=== PATIENT | male | born 1985 | race Caucasian/White ===

== ENCOUNTER 2024-10-03 08:30 | Emergency (ER) | payer OTHER, SELFPAY ==
--- NOTE | ~2024-10-03 | XR_ITS ---
Portable chest x-ray Comparison: None Clinical History: Chest pain Findings: Lungs are clear, without focal consolidation or pleural effusion. Cardiomediastinal silho uette is unremarkable. Bones and soft tissues are unremarkable. Impression: Normal chest. Reviewed, dictated and finalized at location . Impression: Normal chest.
--- OUTSIDE RECORDS SUMMARY | 2024-10-03 08:32 | XMS_ITS | Clinical Summary ---
Author Organization [facility] Address [address] [place] [address] Care Team Providers Care Flatbed Company Driver Name Role Phone Unavailable Primary Care Provider Unavailabl e Source Comments [facility],non-owned Affiliates and Associated Physician Practices is amultiple site organization consisting of ambulatory clinics and hospital sitesin [place], [place], [place] and [place]. This disclosure is being madepursuant to the Care Everywhere program and may not contain all information available regarding this patient. 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 Gender Identity Not on file Sexual Orientation Not on file Plan of Treatment Health Maintenance Due Date Last Done Comments HIV SCREENING 07/25/2002 HEPATITIS C SCREENING 07/21/2005 HEPATITIS B VACCINE (1 of 3 - 19+ 3-dose series) 07/25/2006 HPV VACCINE (1 - 3-dose SCDM series) 07/25/2014 COVID-19 VACCINE (2023-2 5 season) 2023 DEPRESSION SCREENING 02/18/2024 INFLUENZA VACCINE (#1) 2024 DTAP/TDAP/TD VACCINES (2 - T d or Tdap) 12/11/2028 12/11/2018 ZOSTER VACCINE (1 of 2) 07/25/2037 HIB VACCINE Aged Out No longer eligi ble based on patient's age to complete this topic MENINGOCOCCAL (Group B) VACC INE SHARED DECISION-MAKING Aged Out No longer eligibl e based on patient's age to complete this topic MENINGOCOCCAL GROUPS A/C/Y/W VACCINE Aged Out No longer eligible b ased on patient's age to complete this topic PNEUMOCOCCAL VACCINE Aged Out No long er eligible based on patient's age to complete this topic Insurance
[2024-10-03 08:38] VITALS: BP 136/94; PULSE 96; RESP 21; TEMP 36.7; O2SAT 98
--- NOTE | 2024-10-03 08:44 | ECG_ITS ---
Test Date: 2024-10-03 08:35:52 Measurements Intervals [place] Rate: 104 P: 61 MS: 150 QRS: 20 QRSD: 88 T: 58 QT: 319 QTc: 421 Interpretive Statements SINUS TACHYCARDIA POSSIBLE RIGHT VENTRICULAR CONDUCTION DELAY NONSPECIFIC ST ELEVATION IN ANT/INF LEADS BORDERLINE ECG No previous ECG available for comparison Electronically Signed On 10-03-2024 14:50:59 CDT by Johan Ugarte D.O.
[2024-10-03 08:56] VITALS: PULSE 97; O2SAT 99
[2024-10-03 08:59] LABS: Hematocrit 43.5 % (42.0-52.0); Hemoglobin 14.9 g/dL (14.0-18.0); Immature Granulocyte Percent A 0.3 % (0-0.5); Lymphocytes Absolute Auto 2.78 K/mm3 (0.9-3.2); Mean Corpuscular HGB Conc 34.3 g/dl (32-36); Mean Corpuscular Hemoglobin 29.9 pg (26-34); Mean Corpuscular Volume 87.2 fl (80-100); Nucleated Red Blood Cells Absolute Auto 0.000 K/mm3 (0.0-0.012); Nucleated Red Blood Cells Perc 0.0 % (0.0-0.2); Platelet Count Result 324 k/mm3 (150-375); Red Blood Count 4.99 M/mm3 (4.6-6.20); White Blood Count 13.6 K/mm3 (4.5-10.0)
[2024-10-03 09:03] VITALS: BP 127/94; PULSE 100; RESP 18; O2SAT 98
[2024-10-03] MEDS: ASPIRIN 81 MG CHEWABLE TABLET 324 MG PO (09:03)
[2024-10-03 09:08] LABS: Alanine Aminotransferase 83 U/L (6-50); Albumin Level 4.8 g/dL (3.5-5.1); Alkaline Phosphatase 69 U/L (38-126); Anion Gap 12 mmol/L (4-12); Aspartate Amino Transferase 34 U/L (17-59); Bilirubin,Total 1.2 mg/dL (0.2-1.3); Blood Urea Nitrogen 12 mg/dL (9-20); Calcium 9.3 mg/dL (8.4-10.2); Carbon Dioxide 26 mmol/L (22-30); Chloride 98 mmol/L (98-107); Estimated CRCL calculation 155 ml/min; Estimated Glomerular Filt Rate > 60; Glucose 256 mg/dL (65-110); Lipase 85 U/L (23-300); Potassium 4.0 mmol/L (3.4-5.0); Sodium 136 mmol/L (137-145); Total Protein 7.8 g/dL (6.3-8.2)
[2024-10-03 09:12] LABS: INR 0.9; Prothrombin Time 12.7 Seconds (11.1-14.7)
[2024-10-03 09:13] LABS: Partial Thromboplastin Time 27.6 Seconds (22.3-36.8)
[2024-10-03 09:20] LABS: Troponin I < 0.012 ng/mL (0.000-0.034)
--- NOTE | 2024-10-03 09:21 | ED_ITS ---
HPI - Chest Pain General Chief Complaint: Chest Pain Stated Complaint: CP, htn Time Seen by Provider: 10/03/24 09:20 Source: patient and family Mode of arrival: ambulatory Limitations: no limitations History of Present Illness HPI narrative: 39 years old white male came to the ED concerning about elevated blood pressure, also feeling shortness of breath and slight left chest tenderness, soreness left upper extremity noticed this morning after waking up from sleep. Patient is status post sinus surgery 2 days ago. Patient have bilateral nasal packing. History of anxiety and depression and tobacco dependence. Otherwise no family history of coronary artery disease, no history of hypertension or diabetes or hyperlipidemia. Patient been surgeon his symptoms on the Internet when I went see him in the room his blood pressure is 130/90. Related Data Allergies Allergy/AdvReac Type Severity Reaction Status Date / Time Penicillins Allergy Unknown Unknown Verified 10/03/24 08:42 Review of Systems 2 Review of Systems: All systems reviewed & are unremarkable except as noted in HPI and below Exam 2 Narrative: General appearance: Well-developed, well-nourished Skin: Normal color Head: Normocephalic, nontraumatic Eyes: Clear conjunctiva ENT: Oropharynx normal, ears normal, bilateral nasal packing Neck: Supple, nontender Chest and respiratory: Airway patent, no respiratory distress, no accessory muscle use Heart: Regular rate/rhythm Abdomen: Soft, nontender, no organomegaly, quiet bowel sounds Vascular: Normal peripheral pulses, normal capillary refill. Musculoskeletal: Normal range of motion, nontender back Neurologic: Alert and oriented ?3, OVERLAY PLASTICIAN is normal as tested, no gross motor deficit Course Vital Signs Vital signs: Vital Signs Temperature 36.7 C 10/03/24 08:38 Pulse Rate 96 10/03/24 08:38 Respiratory Rate 21 H 10/03/24 08:38 Blood Pressure 136/94 H 10/03/24 08:38 Pulse Oximetry 98 10/03/24 08:38 Oxygen Delivery Room Air 10/03/24 08:38 Temperature 36.7 C 10/03/24 08:38 Pulse Rate 100 10/03/24 09:03 Respiratory Rate 18 10/03/24 09:03 Blood Pressure 127/94 H 10/03/24 09:03 Pulse Oximetry 98 10/03/24 09:03 Oxygen Delivery Room Air 10/03/24 08:56 MDM - Chest Pain MDM Narrative Medical decision making narrative: Patient presents with uncontrolled hypertension, anxiety, status post sinus surgery 2 days ago. Vital signs showing blood pressure 136/94 otherwise within normal limit Physical examination showing a comfortable patient with bilateral nasal packing otherwise within normal limit Differential diagnosis include anxiety like symptoms, patient unable to sleep on either side of his body laying down flat for the last 48 hours which could be pain secondary to positioning Blood workup includes CBC, CMP, troponin showed WBC of 13.6 glucose 256 ALT 83. Otherwise within normal limit EKG on arrival showed sinus tachycardia at 104 beats per minute Chest x-ray showed normal Diagnosis anxiety like symptoms, hyperglycemia, status post sinus surgery The pt was discharged to home.the pt,s condition upon discharge was fair,education was provided to the pt in reference to the final impression,discharge study results,treatment,prognosis and need for follow up . Differential Diagnosis Differential diagnosis: Likely other (As above) Medical Records Data Attestation: I reviewed the patient's medical records. Lab Data Attestation: I reviewed the patient's lab results. 10/03/24 08:50 10/03/24 08:50 Labs: Lab Results 10/03/24 Range/Units 08:50 WBC 13.6 H (4.5-10.0) K/mm3 RBC 4.99 (4.6-6.20) M/mm3 Hgb 14.9 (14.0-18.0) g/dL Hct 43.5 (42.0-52.0) % MCV 87.2 (80-100) fl MCH 29.9 (26-34) pg MCHC 34.3 (32-36) g/dl RDW 11.6 (11.5-14.5) % Plt Count 324 (150-375) k/mm3 MPV 9.8 (7.4-10.4) fl Immature Gran % (Auto) 0.3 (0-0.5) % Neut % (Auto) 67.7 (45.5-73.1) % Lymph % (Auto) 20.5 (18.3-44.2) % [place] % (Auto) 8.3 (2.6-8.5) % Eos % (Auto) 2.6 (0-4.4) % Baso % (Auto) 0.6 (0.2-1.2) % Lymph # (Auto) 2.78 (0.9-3.2) K/mm3 [place] # (Auto) 1.1 H (0.1-0.6) K/mm3 Eos # (Auto) 0.4 H (0-0.3) K/mm3 Baso # (Auto) 0.1 (0.0-0.1) K/mm3 Abs Immat Gran (auto) 0.04 H (0.00-0.031) K/mm3 Absolute Neuts (auto) 9.2 H (1.3-6.7) K/mm3 Absolute Nucleated RBC 0.000 (0.0-0.012) K/mm3 Nucleated RBC % 0.0 (0.0-0.2) % PT 12.7 (11.1-14.7) Seconds INR 0.9 APTT 27.6 (22.3-36.8) Seconds Sodium 136 L (137-145) mmol/L Potassium 4.0 (3.4-5.0) mmol/L Chloride 98 (98-107) mmol/L Carbon Dioxide 26 (22-30) mmol/L Anion Gap 12 (4-12) mmol/L BUN 12 (9-20) mg/dL Creatinine 0.53 L (0.7-1.3) mg/dL Estim Creat Clear Calc 155 ml/min Estimated GFR > 60 (59 - ) Glucose 256 H (65-110) mg/dL Calcium 9.3 (8.4-10.2) mg/dL Total Bilirubin 1.2 (0.2-1.3) mg/dL AST 34 (17-59) U/L ALT 83 H (6-50) U/L Alkaline Phosphatase 69 (38-126) U/L Troponin I < 0.012 (0.000-0.034) ng/mL Total Protein 7.8 (6.3-8.2) g/dL Albumin 4.8 (3.5-5.1) g/dL Lipase 85 (23-300) U/L ECG Data EKG #1: Attestation: I personally reviewed and interpreted this ECG as follows: ECG completion date: 10/03/24 Interpretation: Sinus tachycardia 104 beats per min, right ventricular conduction delay, abnormal rhythm EKG Critical Care Time Critical Care Time Critical Care Time: No Discharge Plan Discharge Clinical Impression: Hyperglycemia, Chest pain, Anxiety Patient Disposition: Home Condition: Stable Instructions: Chest Pain (DC), Nondiabetic Hyperglycemia (ED) Additional Instructions: Return if symptoms are worsening , call your family physician for appointment, take Tylenol as as needed for aches and pain, continue home medications. Patient Language: Kazakh Follow-up/Referrals: Suzi,Moises Ferreira MD [Primary Care Provider] -
[2024-10-03] MEDS: MORPHINE SULFATE (*CRX) 4 MG/ML INJ IV PUSH (09:36)
[2024-10-03] MEDS: ONDANSETRON INJ 4 MG/2 ML VIAL IV PUSH (09:36)
--- OUTSIDE RECORDS SUMMARY | 2024-10-03 09:37 | XMS_ITS | Clinical Summary ---
Author Organization [facility] Address [address] [place] [address] Care Team Providers Care Cardiology Technologist Name Role Phone Unavailable Primary Care Provider Unavailabl e Source Comments [facility],non-owned Affiliates and Associated Physician Practices is amultiple site organization consisting of ambulatory clinics and hospital sitesin [place], [place], [place] and [place]. This disclosure is being madepursuant to the Care Everywhere program and may not contain all information available regarding this patient. 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
--- OUTSIDE RECORDS SUMMARY | 2024-10-03 09:37 | XMS_ITS | Clinical Summary ---
Author Organization [facility] Address [facility] [place] [address] Care Team Providers Care Car Ferrier Name Role Phone Noah Perrin MD Primary Care Prov ider Allergies Active Allergy Reactions Criticality Noted Date Comments Penicillins Hives,Rash Medium 12/11/2018 Medications albuterol sulfate HFA 108 (90 Base) MCG/ACT inhalerIndicatio ns:Mild intermittent childhood asthma without complication (HHS/HCC) Inhale 2 puffs into the lungs every 6 (six) hours as needed for Wheezing. 34 g 1 10/16/19 24 Active sertraline (ZOLOFT) 25 MG tabletIndication s:Anxiety Take 1 tablet (25 mg total) by mouth daily. 90 tablet 3 11/27/19 24 Active SUMAtriptan (IMITREX) 50 MG tabletIndication s:Migraine with aura and without status migrainosus, not intractable Take 1 tablet (50 mg total) by mouth 2 (two) times daily as needed for Migraine. Max of 4 tablets (200 mg) in 24 hours. 30 tablet 1 01/19/20 24 Active finasteride (PROPECIA) 1 MG tablet Take 1 tablet (1 mg total) by mouth daily. 03/03/19 25 Active minoxidil (LONITEN) 2.5 MG tablet Take 1 tablet (2.5 mg total) by mouth daily. 03/03/19 25 Active fluticasone propionate (FLONASE) 50 MCG/ACT nasal sprayIndications :Eustachian tube dysfunction, right SHAKE LIQUID AND USE 1 SPRAY IN EACH NOSTRIL DAILY 16 g 3 05/04/19 25 Active buPROPion XL (WELLBUTRIN XL) 300 MG 24 hr tabletIndication s:Smoker Take 1 tablet (300 mg total) by mouth daily. 30 tablet 3 06/03/19 25 Active UBRELVY 50 MG tabletIndication s:Migraine with aura and without status migrainosus, not intractable TAKE 1 TABLET(50 MG) BY MOUTH TWICE DAILY NEEDED FOR MIGRAINE. MAX OF 4 TABLETS 200 MG IN 24 HOURS 10 tablet 3 09/14/19 25 Active ubrogepant (UBRELVY) 50 MG tabletIndication s:Migraine with aura and without status migrainosus, not intractable Take 1 tablet (50 mg total) by mouth 2 (two) times daily as needed for Migraine. Max of 4 tablets (200 mg) in 24 hours 10 tablet 3 04/12/19 25 025 Discontinued Active Problems Problem Noted Date Diagnosed Date Migraine with aura and witho ut status migrainosus, not intractable 01/08/2024 Assessment & Plan (02/09/2024 1:08 PM TELEPHONER): Chronic. Uncontrolled. Intermittent. Four per mo. Morphology: B/L, Pulsating, Aura, Photophobia, Phonophobia, Nausea, and Debilitating. Pain lasts 1.5-3 days. Has tried Tylenol, Excedrin, and Ubrelvy with some relief. -Medications: As needed Ubrelvy Assessment & Plan (01/08/2024 12:32 PM TELEPHONER): Chronic. Uncontrolled. Intermittent. Four per mo. Morphology: B/L, Pulsating, Aura, Photophobia, Phonophobia, Nausea, and Debilitating. Pain lasts 1.5-3 days. Has tried Tylenol, Excedrin, and Ubrelvy with some relief. -PE today with unremarkable neurological exam in bilateral upper and lower extremities. Cranial nerves intact -Previously has been on Ubrelvy, will send for Ubrelvy -If unable to start with Imitrex. Patient has no history of hypertension or cardiac diagnoses. Current smoker, plan below Anxiety 11/27/2023 Assessment & Plan (03/29/2024 12:29 PM TELEPHONER): Chronic. Controlled. Reports dysregulation, excessive, and out of control worry more days than not in the last 6 mo. Have previously tried: Meditation apps; however, didn't find helpful. Reports great improvement on medication - PHQ-9 score 4 - MEENA-7 score 2 -Medications: Sertraline 25 mg PO daily -Patient not currently seeing a therapist, reports that medication did not -Will be augmenting with Wellbutrin, with concomitant smoking cessation desire Assessment & Plan (11/27/2023 11:07 AM CDT): Chronic. Controlled. Reports dysregulation, excessive, and out of control worry more days than not in the last 6 mo. Have previously tried: Meditation apps; however, didn't find helpful. Reports great improvement on medication - GAD7 score of 3, previously 13 -Medications: Sertraline 25 mg PO daily -Patient not currently seeing a therapist, reports that medication did not -Will be augmenting with Wellbutrin, with concomitant smoking cessation desire Smoker 11/27/2023 Assessment & Plan (03/29/2024 12:26 PM TELEPHONER): Chronic. Chronic smoker, 0.5 pack/day. Smoked 1 PPD for 15 years, then increased to 2 PPD for 40 years, and now back down to 1 PPD for the last 2 years. 25-year pack smoking history. Patient has tried gum and patches, in which she had a skin reaction and did not help. - Continue to encourage smoking cessation - Recommend complete smoking cessation, although it is not a simple processes and a patient has to be completely ready - Counseling time 3-5 minutes - Discussed non-medical resources, such as support classes - Discussed that smoking increases risk for cardiovascular events, stroke, COPD, and lung cancer - Did well on Chantix. Completed the starter pack and 1 mo of the maintenance doses. Pt stated that he ran out of the medication, he restarted his wellbutrin and is doing well - Continue Wellbutrin XL 150 mg PO daily - Denies any itchiness that pt previously described, he thinks that it was likely 2/2 to other allergy - F/u in 2 mo Assessment & Plan (02/09/2024 1:07 PM TELEPHONER): Chronic. Chronic smoker, 1 pack/day. Smoked 1 PPD for 15 years, then increased to 2 PPD for 40 years, and now back down to 1 PPD for the last 2 years. 25-year pack smoking history. Patient has tried gum and patches, in which she had a skin reaction and did not help. Had issues with Wellbutrin XL 150 mg p.o. daily - Continue to encourage smoking cessation - Recommend complete smoking cessation, although it is not a simple processes and a patient has to be completely ready - Counseling time 3-5 minutes - Discussed non-medical resources, such as support classes - Discussed that smoking increases risk for cardiovascular events, stroke, COPD, and lung cancer -Medications: Chantix -Patient reports doing well on Chantix, started on 12/24/2023. Feels like his cravings are less. Now smoking a little less than a pack - Pt reports decreased efficacy, but hasn't increased the amount he smokes -D/w pt likely elevated cravings 2/2 to increased stress - Currently on week 6 - D/w pt to f/u after completion of regimen of chantix -Desired quit date of 03/20/2024 Assessment & Plan (01/08/2024 12:31 PM TELEPHONER): Chronic. Chronic smoker, 1 pack/day. Smoked 1 PPD for 15 years, then increased to 2 PPD for 40 years, and now back down to 1 PPD for the last 2 years. 25-year pack smoking history. Patient has tried gum and patches, in which she had a skin reaction and did not help. Had issues with Wellbutrin XL 150 mg p.o. daily - Continue to encourage smoking cessation - Recommend complete smoking cessation, although it is not a simple processes and a patient has to be completely ready - Counseling time 3-5 minutes - Discussed non-medical resources, such as support classes - Discussed that smoking increases risk for cardiovascular events, stroke, COPD, and lung cancer -Medications: Chantix -Patient reports doing well on Chantix, started on 12/24/2023. Feels like his cravings are less. Now smoking a little less than a pack -Desired quit date of 02/18/2024 Assessment & Plan (11/27/2023 11:08 AM CDT): Chronic. Chronic smoker, 1 pack/day. Smoked 1 PPD for 15 years, then increased to 2 PPD for 40 years, and now back down to 1 PPD for the last 2 years. 25-year pack smoking history. Patient has tried gum and patches, in which she had a skin reaction and did not help. - Continue to encourage smoking cessation - Recommend complete smoking cessation, although it is not a simple processes and a patient has to be completely ready - Counseling time 3-5 minutes - Discussed non-medical resources, such as support classes - Discussed that smoking increases risk for cardiovascular events, stroke, COPD, and lung cancer -Will start Wellbutrin XR 150 mg p.o. daily -Desired quit date of 02/18/2024 Encounters Date Type Department Care Team Description 08/16/2024 Scan [facility] Scanned, [facility] 07/27/2024 Scan [facility] Scanned, [facility] from Last 3 Months Immunizations Immunization Administration Dates Next Due Tdap (Generic) 08/06/2023,12/11/2018 Family History Medical History Relation Comments Diabetes Father Hypertension Mother Relation Status Comments Father Mother Social History Tobacco Use Types Packs/Day Years Used Date Smoking Tobacco: Every Day Cigarettes 1 15 Passive Smoke Exposure: Current Smokeless Tobacco: Never Tobacco Cessation:Ready to Q uit: Yes; Counseling Given: Yes Alcohol Use Standard Drinks/Week Comments Not Currently 0 (1 standard drink = 0.6 oz pur e alcohol) PHQ-2 Answer Date Recorded Patient Health Questionnaire-2 Score 0 06/02/2024 Sex and Gender Information Value Date Recorded Sex Assigned at Male 09/09/2023 4:14 PM CDT Legal Sex Male 9:22 AM CDT Gender Identity Male 09/09/2023 4:14 PM CDT Sexual Orientation Not on file Last Filed Vital Signs Vital Sign Reading Time Taken Comments Blood Pressure 128/82 06/02/2024 12:03 PM CDT Pulse 93 06/02/2024 12:03 PM CDT Temperature 36.7 C (98.1 F) 06/02/2024 12:03 PM CDT Respiratory Rate 18 06/02/2024 12:03 PM CDT Oxygen Saturation 97% 06/02/2024 12:03 PM CDT Inhaled Oxygen Concentration - - Weight 67.6 kg (149 lb 1.6 oz) 06/02/2024 12:03 PM CDT Height 175.3 cm (5' 9) 06/02/2024 12:03 PM CDT Body Mass Index 22.02 06/02/2024 12:03 PM CDT Plan of Treatment Upcoming Encounters Date Type Department Care Team (Late st Contact Info) Description 10/19/2024 11:40 AM CDT Office Visit [facility] Family Medicine - [address], [address] [place] [id number] Suzi VII, Noah Patel MD [address] [place] [address], [place] [address] [place] [id number] Health Maintenance Due Date Last Done Comments Annual Physical 07/25/1990 Hepatitis C 07/25/2005 Hepatitis B Vaccines (1 of 3 - 19+ 3-dose series) 07/25/2006 Pneumococcal Vaccine: Pediatrics (0 to 5 Years) and At-Risk Patients (6 to 49 Years) (1 of 2 - PCV) 07/25/2006 HPV Vaccines (1 - 3-dose SCD M series) 07/25/2014 COVID-19 Vaccine (4 - 2023-2 5 season) 2023 01/03/2021, 04/19/2020, 03/29/2020 DTaP, Tdap and Td Vaccines ( 3 - Td or Tdap) 08/05/2033 08/06/2023, 12/11/2018 PHQ-2 (Physician [place]) Completed 06/02/2024 Meningococcal B Vaccine Aged Out No l onger eligible based on patient's age to complete this topic Meningococcal Vaccine Aged Out No carmen robert eligible based on patient's age to complete this topic RSV Immunizations Under 20 Months Aged Out No longer eligible b ased on patient's age to complete this topic Insurance [facility] Care Teams Car Ferrier Relationship Specialty Start Date End Date Suzi VII, Noah Patel MD [address] [place] [address], [address] [phone] PCP - General FAMILY PRACTICE 10/16/23
[2024-10-03 10:46] VITALS: BP 135/87; PULSE 96; RESP 17; O2SAT 99
== END 2024-10-03 10:47 | disposition home or self-care (01) ==
PROVIDERS: Emergency Provider Emergency Medicine; PCP Family Medicine
DX: R07.9 Chest pain, unspecified (principal); R73.9 Hyperglycemia, unspecified; F41.9 Anxiety disorder, unspecified; Z98.890 Other specified postprocedural states; R00.0 Tachycardia, unspecified; R94.31 Abnormal electrocardiogram [ECG] [EKG]
CPT/HCPCS: 36415; 71045; 80053; 83690; 84484; 85025; 85610; 85730; 93005; 96374; 96375; 99284; A9270; J2270; J2405